=== PATIENT | male | born 1990 | race Caucasian/White ===

== ENCOUNTER 2017-04-16 01:36 | Emergency (ER) | payer OTHER ==
[~2017-04-16] VITALS: Ht 182.9 cm; Wt 74.8 kg
[2017-04-16 01:51] VITALS: BP_SYST 144
[2017-04-16] MEDS ORDERED: HYDROmorphone 2 MG/ML VIAL IVP ONE ×2 (02:45→03:45)
[2017-04-16] MEDS ORDERED: DIPHENHYDRAMINE INJ 50 MG/ML VIAL IVP ONE ×2 (02:45→03:00)
[2017-04-16] MEDS ORDERED: ONDANSETRON HCL 4 MG/2 ML VIAL IVP ONE (02:45)
[2017-04-16] MEDS ORDERED: DIPHENHYDRAMINE INJ 50 MG/ML VIAL ONE (02:49)
[2017-04-16] MEDS ORDERED: DIAZEPAM 10 MG/2 ML DISP.SYRIN IVP ONE ×2 (03:15→04:15)
[2017-04-16] MEDS ORDERED: MIDAZOLAM HCL 5 MG/5 ML VIAL IVP ONE (05:00)
[2017-04-16] MEDS ORDERED: PROPOFOL DRIP 100 ML IV ONE (06:15)
[2017-04-16 06:50] LABS: BILIRUBIN,URINE NEGATIVE (NEGATIVE); CLARITY/URINE HAZY (CLEAR); COLOR,URINE YELLOW (YELLOW); GLUCOSE,URINE NEGATIVE (NEGATIVE); KETONES,URINE TRACE (NEGATIVE); LEUKOCYTE ESTERASE ,URINE 3+ (NEGATIVE); NITRITE, URINE POSITIVE (NEGATIVE); PROTEIN URINE NEGATIVE (NEGATIVE); UROBILINOGEN,URINE 0.2 (0.2-1.0)
[2017-04-16 06:53] LABS: BLOOD, URINE TRACE (NEGATIVE)
[2017-04-16 07:01] LABS: BACTERIA,URINE MANY /HPF (None Seen); RBC,URINE 0-3 /HPF (0-3); WBC,URINE 20-50 /HPF (0-3)
[2017-04-16 07:45] VITALS: BP_SYST 137
== END 2017-04-16 07:45 | disposition home or self-care (01) ==
LOC: SED 01:36
DX: Z46.6 Encounter for fitting and adjustment of urinary device (principal); R33.9 Retention of urine, unspecified; Z88.6 Allergy status to analgesic agent; Z88.4 Allergy status to anesthetic agent; Z88.5 Allergy status to narcotic agent
CPT/HCPCS: 51702; 81000; 87086; 87186; 96374; 96375; 96376; 99152; 99285; J1170; J1200; J2250; J2405; J2704; J3360; 99284

== ENCOUNTER 2017-05-07 00:22 | Emergency (ER) | payer OTHER ==
[~2017-05-07] VITALS: Ht 180.3 cm; Wt 72.6 kg
[2017-05-07 00:22] VITALS: BP_SYST 138
== END 2017-05-07 01:05 | disposition left against medical advice (07) ==
LOC: SED 00:22
DX: Z46.6 Encounter for fitting and adjustment of urinary device (principal); Z53.21 Procedure and treatment not carried out due to patient leaving prior to being seen by health care provider; Z88.6 Allergy status to analgesic agent; Z88.4 Allergy status to anesthetic agent
CPT/HCPCS: 99281

== ENCOUNTER 2018-10-05 19:04 | Inpatient (IN) | payer OTHER ==
[~2018-10-05] VITALS: Ht 175.3 cm; Wt 74.8 kg
[2018-10-05 19:15] VITALS: BP_SYST 141
[2018-10-05] MEDS ORDERED: ONDA4TAB5 PO (19:24)
[2018-10-05] MEDS ORDERED: CIPR-211 PO (19:24)
[2018-10-05] MEDS ORDERED: HYDR-2489 PO (19:25)
[2018-10-05] MEDS ORDERED: MORPHINE 4 MG/ML INJ. SYRINGE IVP ONE (20:00)
[2018-10-05] MEDS ORDERED: LORazepam 2 MG/ML VIAL (FOR ER USE) IVP ONE (20:00)
[2018-10-05] MEDS ORDERED: DIPHENHYDRAMINE INJ 50 MG/ML VIAL IVP ONE (20:30)
[2018-10-05] MEDS ORDERED: INSULIN REGULAR, HUMAN 10 UNITS/0.1 ML INJ IVP ONE (21:00)
[2018-10-05 21:54] LABS: BASOPHILS # (AUTO) 0.1 K/uL (0.0-0.2); BASOPHILS % (AUTO) 1.5 % (0.0-2.0); EOSINOPHILS # (AUTO) 0.3 K/uL (0.0-0.4); EOSINOPHILS % (AUTO) 2.6 % (0.0-4.0); HEMATOCRIT 47.9 % (36-54); HEMOGLOBIN 16.3 g/dL (14.0-18.0); LYMPHOCYTES # (AUTO) 2.5 K/uL (1.0-5.5); LYMPHOCYTES % (AUTO) 24.8 % (20.5-51.5); MEAN CORPUSCULAR HEMOGLOBIN 32 pg (27-31); MEAN CORPUSCULAR HGB CONC 34 % (32-36); MEAN CORPUSCULAR VOLUME 93 fL (79.0-98.0); MONOCYTES # (AUTO) 0.6 K/uL (0.0-1.0); NEUTROPHILS # (AUTO) 6.4 K/uL (1.8-7.7); NEUTROPHILS % (AUTO) 65.1 % (40.0-70.0); PLATELET COUNT (AUTO) 274 K/uL (130-430); RED BLOOD CELL COUNT(AUTO) 5.17 MIL/uL (4.2-6.2); RED CELL DISTRIBUTION WIDTH 11.6 % (9.0-15.0); WHITE BLOOD COUNT (AUTO) 9.9 K/uL (4.8-10.8)
[2018-10-05 22:03] LABS: CALCIUM 9.2 mg/dL (8.4-11.0); CREATININE 0.81 mg/dL (0.55-1.30); POTASSIUM 4.2 mmol/L (3.5-5.1)
[2018-10-05 22:08] LABS: PROTHROMBIN TIME 9.8 SECS (9.5-12.5); TOTAL BILIRUBIN 0.2 mg/dL (0.0-1.0)
[2018-10-05 22:38] VITALS: BP_SYST 125
[2018-10-05] MEDS ORDERED: ACETAMINOPHEN 325 MG TABLET PO PRN (23:15)
[2018-10-05] MEDS: HYDROmorphone 1 MG INJ. 1 MG/ML AMPUL IVP PRN (23:25)
[2018-10-05] MEDS: ONDANSETRON HCL 4 MG/2 ML VIAL IVP PRN (23:25)
[2018-10-05] MEDS ORDERED: DIPHENHYDRAMINE HCL 25 MG CAPSULE PO PRN (23:45)
[2018-10-06] VITALS: BP_SYST 135
[2018-10-06] MEDS: HYDROmorphone 1 MG INJ. 1 MG/ML AMPUL IVP PRN ×5 (03:31→20:45)
[2018-10-06] MEDS ORDERED: ALPR1TAB2 PO (05:25)
[2018-10-06] MEDS: ONDANSETRON HCL 4 MG/2 ML VIAL IVP PRN (07:54)
[2018-10-06 08:00] VITALS: BP_SYST 124
[2018-10-06] MEDS ORDERED: MIDAZOLAM HCL 5 MG/5 ML VIAL ONE (10:00)
[2018-10-06] MEDS ORDERED: MIDAZOLAM HCL 5 MG/5 ML VIAL IVP ONE (10:00)
[2018-10-06 12:07] VITALS: BP_SYST 144
[2018-10-06] MEDS: HYDROcodone/ACETAMIN 7.5-325 MG TAB PO PRN ×3 (14:04→23:48)
[2018-10-06 16:33] VITALS: BP_SYST 138
[2018-10-06 20:00] VITALS: BP_SYST 137
[2018-10-07 00:42] VITALS: BP_SYST 91
[2018-10-07] MEDS: HYDROmorphone 1 MG INJ. 1 MG/ML AMPUL IVP PRN ×3 (00:55→09:45)
[2018-10-07 05:59] LABS: BILIRUBIN,URINE NEGATIVE (NEGATIVE); BLOOD, URINE 1+ (NEGATIVE); CLARITY/URINE SL HAZY (CLEAR); COLOR,URINE YELLOW (YELLOW); GLUCOSE,URINE NEGATIVE (NEGATIVE); KETONES,URINE NEGATIVE (NEGATIVE); LEUKOCYTE ESTERASE ,URINE 2+ (NEGATIVE); NITRITE, URINE NEGATIVE (NEGATIVE); PH,URINE 5.5 (5.0-8.0); PROTEIN URINE TRACE (NEGATIVE); UROBILINOGEN,URINE 0.2 (0.2-1.0)
[2018-10-07 06:10] LABS: BARBITURATE, URINE NEGATIVE (NEG <=200); BENZODIAZEPINE, URINE POSITIVE (NEG <=150); CANNABINOID, URINE POSITIVE (NEG <=50); COCAINE, URINE NEGATIVE (NEG <=150); METHAMPHETAMINES SCREEN,URINE NEGATIVE (NEG <=500); OPIATE, URINE POSITIVE (NEG <=100); PHENCYCLIDINE SCREEN,URINE NEGATIVE (NEG <=25); UR TRICYCLIC ANTIDEPRESSANTS NEGATIVE (NEG <=300); URINE AMPHETAMINE NEGATIVE (NEG <=500); URINE METHADONE NEGATIVE (NEG <=200); URINE OXYCODONE SCREEN NEGATIVE (NEG <=100); URINE PROPOXYPHENE SCREEN NEGATIVE (NEG <=300)
[2018-10-07 06:20] LABS: BACTERIA,URINE MODERATE /HPF (None Seen); WBC,URINE 20-50 /HPF (0-3)
[2018-10-07 08:46] VITALS: BP_SYST 145
[2018-10-07] MEDS: ONDANSETRON HCL 4 MG/2 ML VIAL IVP PRN (09:44)
[2018-10-07 10:36] VITALS: BP_SYST 135
== END 2018-10-07 10:40 | disposition home or self-care (01) | DRG 466 ==
LOC: SED 19:04 → SMU 21:54 → EEVIPCON 21:54 → SMU 22:10
PROVIDERS: ADMIT Family Medicine; ATTEND Family Medicine
PROC: 0TJDXZZ Inspection of Urethra, External Approach (ICD-10-PCS; principal; 2018-10-05)
PROC: 0T9B30Z Drainage of Bladder with Drainage Device, Percutaneous Approach (ICD-10-PCS; 2018-10-06)
DX: T83.021A Displacement of indwelling urethral catheter, initial encounter (principal); E87.1 Hypo-osmolality and hyponatremia; S37.39XA Other injury of urethra, initial encounter; R33.8 Other retention of urine; F12.90 Cannabis use, unspecified, uncomplicated; F17.210 Nicotine dependence, cigarettes, uncomplicated; N39.0 Urinary tract infection, site not specified; F41.9 Anxiety disorder, unspecified; Y73.8 Miscellaneous gastroenterology and urology devices associated with adverse incidents, not elsewhere classified; Z60.2 Problems related to living alone; X58.XXXA Exposure to other specified factors, initial encounter; N45.1 Epididymitis; Z87.81 Personal history of (healed) traumatic fracture; Z88.8 Allergy status to other drugs, medicaments and biological substances; Z79.899 Other long term (current) drug therapy; Y93.89 Activity, other specified; Y92.89 Other specified places as the place of occurrence of the external cause; Y99.8 Other external cause status
CPT/HCPCS: 36415; 80053; 80307; 81000-TC; 85025; 85610-TC; 85730-TC; 87086; 87186-TC; 96374; 96375; 99285; J1170; J1200; J2060; J2250; J2270; J2405; Q0163